=== PATIENT | female | born 1985 | race Caucasian/White ===

== ENCOUNTER 2018-01-20 14:08 | Emergency (ER) | payer MEDICAID ==
[~2018-01-20 14:08] MED LIST: ALBU18HF2 IH; CEFP100T7 PO; CLON0.1T20 PO; LEVO175T7 PO; QUET300T2 PO
== END 2018-01-20 16:07 | disposition left against medical advice (07) ==
LOC: ER 14:09
DX: J00 Acute nasopharyngitis [common cold] (principal); Z53.21 Procedure and treatment not carried out due to patient leaving prior to being seen by health care provider

== ENCOUNTER 2019-12-30 08:40 | Emergency (ER) | payer MEDICAID ==
[~2019-12-30] VITALS: Ht 170.2 cm; Wt 134.1 kg
[~2019-12-30 08:40] MED LIST changes: +CLON0.1T2 PO; -CLON0.1T20 PO
[2019-12-30 08:44] VITALS: BP 150/96
[2019-12-30] MEDS ORDERED: DOXY100C76 PO (10:09)
[2019-12-30] MEDS ORDERED: acetaminophen 325mg tablet PO ONE (10:10)
[2019-12-30] MEDS ORDERED: bacitracin 15gm ointment TP ONE (10:10)
[2019-12-30] MEDS ORDERED: TETanus/Pertussis (Acell)/Diphther VAC/PF (Tdap-Adult) 0.5ml syringe IMVAC ONE (10:10)
[2019-12-30] MEDS ORDERED: LIDOcaine 1% W/epiNEPHrine 1:200,000 10ml vial IJ ONE (10:10)
[2019-12-30] MEDS ORDERED: buprenorphine/naloxone 8MG-2MG SUBlingual film SL STA (12:05)
== END 2019-12-30 12:31 | disposition home or self-care (01) ==
LOC: ER 08:41
DX: S51.812A Laceration without foreign body of left forearm, initial encounter (principal); S51.811A Laceration without foreign body of right forearm, initial encounter; K21.9 Gastro-esophageal reflux disease without esophagitis; E11.9 Type 2 diabetes mellitus without complications; E03.9 Hypothyroidism, unspecified; F41.9 Anxiety disorder, unspecified; Z98.890 Other specified postprocedural states; F12.90 Cannabis use, unspecified, uncomplicated; Z72.89 Other problems related to lifestyle; Z56.0 Unemployment, unspecified; Z88.0 Allergy status to penicillin; Z88.8 Allergy status to other drugs, medicaments and biological substances; Z79.899 Other long term (current) drug therapy; W54.0XXA Bitten by dog, initial encounter; Y93.89 Activity, other specified; Y92.89 Other specified places as the place of occurrence of the external cause; Y99.8 Other external cause status
CPT/HCPCS: 12002; 73090; 73610; 90471; 90715; 99284

== ENCOUNTER 2020-02-07 12:58 | Emergency (ER) | payer MEDICAID ==
[~2020-02-07] VITALS: Ht 170.2 cm; Wt 110.0 kg
[2020-02-07] MEDS ORDERED: HYDR-4353 PO (14:09)
[2020-02-07 14:55] VITALS: BP 141/85
== END 2020-02-07 14:50 | disposition home or self-care (01) ==
LOC: ER 12:58
DX: M54.2 Cervicalgia (principal); M25.562 Pain in left knee; R20.0 Anesthesia of skin; K21.9 Gastro-esophageal reflux disease without esophagitis; E11.9 Type 2 diabetes mellitus without complications; E03.9 Hypothyroidism, unspecified; F41.9 Anxiety disorder, unspecified; F12.90 Cannabis use, unspecified, uncomplicated; F19.90 Other psychoactive substance use, unspecified, uncomplicated; Z98.890 Other specified postprocedural states; Z72.89 Other problems related to lifestyle; Z56.0 Unemployment, unspecified; Z88.0 Allergy status to penicillin; Z88.1 Allergy status to other antibiotic agents; Z88.8 Allergy status to other drugs, medicaments and biological substances; Z79.2 Long term (current) use of antibiotics; Z79.899 Other long term (current) drug therapy; W18.39XA Other fall on same level, initial encounter; Y93.89 Activity, other specified; Y92.89 Other specified places as the place of occurrence of the external cause; Y99.8 Other external cause status
CPT/HCPCS: 73564; 99284

== ENCOUNTER 2022-06-19 14:45 | Emergency (ER) | payer MEDICAID ==
[~2022-06-19] VITALS: Ht 172.7 cm; Wt 145.4 kg
[2022-06-19 16:53] VITALS: BP 132/94
[2022-06-19] MEDS ORDERED: ondansetron/PF 4mg/2ml inj IV ONE (20:05)
[2022-06-19] MEDS ORDERED: normal saline 1000ML IV soln IVB ONE (20:05)
[2022-06-19] MEDS ORDERED: dexamethasone sod phosphate 10mg/ml inj IV STA (20:08)
[2022-06-19 21:24] LABS: COLOR,URINE YELLOW (Yellow); GLUCOSE, URINE NEGATIVE (Neg); KETONES,URINE NEGATIVE (Neg); LEUKOCYTE ESTERASE ,URINE NEGATIVE (Neg); NITRITES, URINE NEGATIVE (Neg); OCCULT BLOOD,URINE NEGATIVE (Neg); PROTEIN,URINE TRACE mg/dl (Neg)
[2022-06-19 21:33] LABS: CLARITY,URINE SLIGHTLY CLOUDY (Clear); UA COLLECTION TYPE CLN CATCH MIDSTREAM
[2022-06-19 21:34] LABS: BACTERIA,URINE FEW /HPF (Neg); RBC,URINE NONE SEEN /HPF (0-2); SQUAMOUS EPITHELIAL CELL,UR MODERATE /LPF (FEW); WBC,URINE 0-4 /HPF (0-4)
[2022-06-19] MEDS ORDERED: ONDA8TAB13 PO (22:07)
== END 2022-06-19 22:20 | disposition home or self-care (01) ==
LOC: ER 14:46
DX: B34.9 Viral infection, unspecified (principal); Z20.822 Contact with and (suspected) exposure to COVID-19; R50.9 Fever, unspecified; R11.2 Nausea with vomiting, unspecified; K21.9 Gastro-esophageal reflux disease without esophagitis; E11.9 Type 2 diabetes mellitus without complications; E03.9 Hypothyroidism, unspecified; F41.9 Anxiety disorder, unspecified; F17.200 Nicotine dependence, unspecified, uncomplicated; F12.90 Cannabis use, unspecified, uncomplicated; F19.90 Other psychoactive substance use, unspecified, uncomplicated; Z98.890 Other specified postprocedural states; Z72.89 Other problems related to lifestyle; Z56.0 Unemployment, unspecified; Z88.0 Allergy status to penicillin; Z88.1 Allergy status to other antibiotic agents; Z88.8 Allergy status to other drugs, medicaments and biological substances; Z79.2 Long term (current) use of antibiotics; Z79.899 Other long term (current) drug therapy
CPT/HCPCS: 81001; 87502; 87503; 87635; 93005; 96361; 96374; 96375; 99284; C9803; J1100; J2405; J7030

== ENCOUNTER 2022-08-01 23:14 | Emergency (ER) | payer MEDICAID ==
[~2022-08-01] VITALS: Ht 172.7 cm; Wt 104.5 kg
[~2022-08-01 23:14] MED LIST changes: +ONDA8TAB13 PO
[2022-08-01] MEDS ORDERED: LIDOcaine/epinephrine/tetracaine TOPICAL sol 3 ML syringe TOP ONE (23:45)
[2022-08-01] MEDS ORDERED: iohexol 300mg/ml 100ml inj. ONE (23:47)
[2022-08-02] VITALS: BP 122/70
[2022-08-02 00:10] LABS: BASOPHILS % (AUTO) 0.5 % (0-1); EOSINOPHILS % (AUTO) 0.1 % (0-6); HEMATOCRIT 41.6 % (35.0-45.0); HEMOGLOBIN 13.8 g/dl (12.0-16.0); LYMPHOCYTES # (AUTO) 3.9 X10'3 (1.1-4.8); LYMPHOCYTES % (AUTO) 40.9 % (21-51); MEAN CORPUSCULAR HEMOGLOBIN 28.6 PG (27.0-31.0); MEAN CORPUSCULAR HGB CONC 33.2 g/dL (33.0-36.5); MEAN CORPUSCULAR VOLUME 86.3 FL (78-98); MEAN PLATELET VOLUME 7.8 FL (7.4-10.4); MONOCYTES # (AUTO) 1.1 X10'3 (0-0.9); MONOCYTES % (AUTO) 11.7 % (2-12); NEUTROPHILS # (AUTO) 4.5 X10'3 (1.8-7.7); NEUTROPHILS % (AUTO) 46.8 % (42-75); PLATELET COUNT 219 X10'3 (140-440); RED BLOOD COUNT 4.82 X10'6 (4.20-5.60); RED CELL DISTRIBUTION WIDTH 17.1 % (11.5-14.5); WHITE BLOOD COUNT 9.6 X10'3 (4.5-11.0)
[2022-08-02 00:30] LABS: ANION GAP 6 (8-16); BILIRUBIN,TOTAL 0.3 MG/DL (0.1-1.0); BLOOD UREA NITROGEN 10 MG/DL (7-18); BUN/CREATININE RATIO 14.1 (6.6-38.0); CALCIUM 8.5 MG/DL (8.5-10.1); CHLORIDE 105 MMOL/L (99-107); CREATININE 0.71 MG/DL (0.40-0.90); GLUCOSE 89 MG/DL (70-104); POTASSIUM 3.3 MMOL/L (3.5-5.1); SODIUM 141 MMOL/L (135-145); TOTAL CARBON DIOXIDE 29.7 MMOL/L (24-32); eGFR > 90 ML/MIN
[2022-08-02 00:31] LABS: ALANINE AMINOTRANSFERASE 45 U/L (12-78); ALBUMIN 3.5 G/DL (3.4-5.0); ALBUMIN/GLOBULIN RATIO 0.9 (1.1-1.5); ALKALINE PHOSPHATASE 92 IU/L (46-116); ASPARTATE AMINO TRANSFERASE 32 U/L (10-37); BETA HCG,QUANTITATIVE < 1.0 mIU/ml; TOTAL PROTEIN 7.2 G/DL (6.4-8.2)
[2022-08-02] MEDS ORDERED: POTASSIUM BICARB 20meq eff tab 20 MEQ TABLET.EFF PO SCH (01:10)
[2022-08-02 01:39] LABS: CLARITY,URINE SLIGHTLY CLOUDY (Clear); COLOR,URINE YELLOW (Yellow); GLUCOSE, URINE NEGATIVE (Neg); KETONES,URINE NEGATIVE (Neg); LEUKOCYTE ESTERASE ,URINE NEGATIVE (Neg); NITRITES, URINE POSITIVE (Neg); OCCULT BLOOD,URINE NEGATIVE (Neg); PH,URINE 5.5 (4.8-8.0); PROTEIN,URINE NEGATIVE (Neg); UROBILINOGEN,URINE 0.2 E.U/dL (0.2-1.0)
[2022-08-02 01:45] LABS: UA COLLECTION TYPE OTHER
[2022-08-02 01:46] LABS: MUCUS STRANDS MODERATE /LPF (Neg); SQUAMOUS EPITHELIAL CELL,UR MANY /LPF (FEW)
[2022-08-02 01:47] LABS: CAL OXALATE CRYSTALS 4+ /HPF (NEGATIVE)
[2022-08-02 01:48] LABS: BACTERIA,URINE 1+ /HPF (Neg); RBC,URINE 0-2 /HPF (0-2)
[2022-08-02] MEDS ORDERED: ketorolac trometh. 30mg/ml inj. IV ONE (01:50)
[2022-08-02] MEDS ORDERED: acetaminophen 325mg tablet PO ONE (01:50)
[2022-08-02] MEDS ORDERED: LIDOCAINE 2%/EPI 1:100,000 inj. Multi-dose 20 ML VIAL IM ONE (02:00)
[2022-08-02 02:08] LABS: URINE AMPHETAMINE SCREEN POSITIVE (Neg); URINE BARBITUATE SCREEN NEGATIVE (Neg); URINE BENZODIAZEPINES SCREEN POSITIVE (Neg); URINE CANNABINOID SCREEN POSITIVE (Neg); URINE COCAINE SCREEN NEGATIVE (Neg); URINE METHADONE SCREEN NEGATIVE (Neg); URINE OPIATE SCREEN NEGATIVE (Neg); URINE PHENCYCLIDINE SCREEN NEGATIVE (Neg)
[2022-08-02 02:09] LABS: ETHANOL < 0.010 GM/DL (0.0-0.010)
== END 2022-08-02 03:00 | disposition home or self-care (01) ==
LOC: ER 23:16
DX: S01.01XA Laceration without foreign body of scalp, initial encounter (principal); S30.0XXA Contusion of lower back and pelvis, initial encounter; S30.1XXA Contusion of abdominal wall, initial encounter; S50.01XA Contusion of right elbow, initial encounter; K21.9 Gastro-esophageal reflux disease without esophagitis; E11.9 Type 2 diabetes mellitus without complications; E03.9 Hypothyroidism, unspecified; F41.9 Anxiety disorder, unspecified; F12.90 Cannabis use, unspecified, uncomplicated; Z98.890 Other specified postprocedural states; Z72.89 Other problems related to lifestyle; Z56.0 Unemployment, unspecified; Z88.0 Allergy status to penicillin; Z88.1 Allergy status to other antibiotic agents; Z88.8 Allergy status to other drugs, medicaments and biological substances; Z79.899 Other long term (current) drug therapy; V87.7XXA Person injured in collision between other specified motor vehicles (traffic), initial encounter; Y93.89 Activity, other specified; Y92.488 Other paved roadways as the place of occurrence of the external cause; Y99.8 Other external cause status
CPT/HCPCS: 12002; 36415; 70450; 71260; 72125; 73110; 73140; 73610; 74177; 80053; 80305; 80320; 81001; 83880; 84702; 85025; 85610; 86885; 86900; 86901; 99285; J3490; Q9967; A6449

== ENCOUNTER 2024-10-22 11:29 | Emergency (ER) | payer MEDICAID ==
[~2024-10-22] VITALS: Ht 170.2 cm; Wt 160.0 kg
[~2024-10-22 11:29] MED LIST changes: +ONDA-245 PO; -ONDA8TAB13 PO
[2024-10-22 11:35] VITALS: BP 166/64; PULSE 88; RESP 18; TEMP 97.6; O2SAT 96
[2024-10-22 13:29] LABS: BILIRUBIN,URINE NEGATIVE (Neg); CLARITY,URINE TURBID (Clear); COLOR,URINE RED (Yellow); GLUCOSE, URINE 100 mg/dl (Neg); KETONES,URINE NEGATIVE (Neg); LEUKOCYTE ESTERASE ,URINE NEGATIVE (Neg); OCCULT BLOOD,URINE MODERATE (Neg); PH,URINE 5.5 (4.8-8.0); PROTEIN,URINE 30 mg/dl (Neg)
[2024-10-22 13:33] LABS: URINE HCG NEGATIVE (NEG)
[2024-10-22 13:34] LABS: NITRITES, URINE NEGATIVE (Neg); UA COLLECTION TYPE NON-SPECIFIED
[2024-10-22] MEDS: phenazopyridine 100mg tablet PO ONE (13:34)
[2024-10-22 13:36] LABS: AMORPHOUS URATES 3+
[2024-10-22 13:37] LABS: SQUAMOUS EPITHELIAL CELL,UR MODERATE /LPF (FEW)
[2024-10-22 13:38] LABS: RBC,URINE 20-50 /HPF (0-2)
[2024-10-22] MEDS ORDERED: SULF1TAB49 PO (13:39)
[2024-10-22 13:40] LABS: BACTERIA,URINE FEW /HPF (Neg); WBC,URINE 0-4 /HPF (0-4)
== END 2024-10-22 13:45 | disposition home or self-care (01) ==
LOC: ER 11:30
DX: N39.0 Urinary tract infection, site not specified (principal); E03.9 Hypothyroidism, unspecified; E11.9 Type 2 diabetes mellitus without complications; Z88.0 Allergy status to penicillin; Z88.1 Allergy status to other antibiotic agents
CPT/HCPCS: 81001; 81025; 99283

== ENCOUNTER 2024-12-05 14:56 | Emergency (ER) | payer MEDICAID ==
[~2024-12-05] VITALS: Ht 170.2 cm; Wt 154.6 kg
[2024-12-05 15:00] VITALS: BP 178/117; PULSE 101; RESP 16; TEMP 98; O2SAT 99
--- NOTE | 2024-12-05 15:21 | Physician Documentation ---
History of Present Illness ~ Chief Complaint: Leg Laceration Stated Complaint: L LEG LAC Time Seen by MD: 15:20 Primary Medical Doctor: Dr. Lewis [facility] HPI 39-year-old female presents to the emergency department [place] cut her left lateral outer leg on a piece of glass or some branches. Significant bleeding at the scene, but someone had some gauze and Coban that she wrapped it up with. She believes that her most recent tetanus was in 2019. She denies any other concerns today. Tetanus Within 5 Years: No Medication Reconciliation Allergies: Coded Allergies: Penicillins (Verified Allergy, Severe, 10/22/24) Tolerated Cefepime during hospital stay 02/22 amoxicillin (Verified Allergy, Unknown, rash, 10/22/24) cyclobenzaprine HCl (Verified Allergy, Unknown, RASH, 10/22/24) ketorolac tromethamine (Verified Allergy, Unknown, RASH, 10/22/24) Uncoded Allergies: throat swells (Allergy, Severe, 05/26/16) Scheduled Cefpodoxime Proxetil (Cefpodoxime Proxetil), 100 MG PO BID@0830,1730 Clonidine HCl (Clonidine HCl), 1 TAB PO BID, (Reported) Levothyroxine Sodium (Levothyroxine Sodium), 1 TAB PO DAILY, (Reported) Ondansetron 8mg ODT (Ondansetron Odt), 1 TAB PO Q6H Quetiapine Fumarate (Seroquel), 300 MG PO BID, (Reported) Sulfamethoxazole/Trimethoprim (Bactrim Ds Tablet), 1 TAB PO Q12H Scheduled PRN Albuterol Sulfate (Ventolin Hfa), 1 PUFF IH Q6H PRN for SOB or wheezing, (Reported) Past Medical History Past Medical History: GERD, Diabetes, Hypothyroidism, Anxiety Past Surgical History: orthopedic surgeries, other Patient History: FH: prostate cancer FATHER Alcohol Use: Occasionally Drug Use: marijuana, other Lives with: Spouse Lives In: Home Occupation: unemployed Review of Systems ROS As stated above in the HPI, otherwise all systems are reviewed and negative. Physical Exam Vital Signs: Temperature: 98.0, Source: Temporal, Heart Rate: 101, Respiratory Rate: 16, BP: 178/117, Pulse Oximetry: 99, Weight: 154.600 Oxygen Flow Rate: 0 Physical Exam General: Alert, no apparent distress. Neck: Full range of motion. Respiratory: Lungs clear, no respiratory distress. Chest: No accessory muscle use. Cardiovascular: Regular rate and rhythm, no murmurs. Gastrointestinal: Soft, nontender, nondistended. Bowels sounds present. Extremities: Normal range of motion, no deformity. Neurologic: Oriented x4. Psychiatric: Normal mood and affect. Skin: Normal color, warm and dry. No edema, no ecchymosis. Procedures Procedure Note LLE laceration measuring 3 cm closed with four 4.0 ethilon sutures to good effect. This was accomplished after the wound was anesthetized with 2 ml of 1% lidocaine with epi to good effect. The helpdesk technician then irrigated with 250 ml of NS. No foreign body. Adipose tissue exposed. Good closure and patient tolerated well. Progress Results/Orders Results/Orders Orders - JONAH BOONE ASSEMBLY MACHINE OPERATOR Tib/Fib (12/05/24 15:21) Dressing Orders (12/05/24 15:21) Laceration/I&D Tray Set Up (12/05/24 15:21) Wound Care Orders (12/05/24 15:21) Completed Orders - JONAH BOONE ASSEMBLY MACHINE OPERATOR Tib/Fib (12/05/24 15:21) Tetanus/Pertuss/Diph Acell/Pf (Boostrix (12/05/24 15:25) Lidocaine 1% W/Epi 1:100,000 (Xylocaine (12/05/24 15:25) Vital Signs 12/05/24 15:00 Temp 98.0 Pulse 101 Resp 16 B/P (MAP) 178/117 Pulse Ox 99 O2 Flow Rate 0 EKG/XRAY/CT/US/VASC/MRI Bone/Soft Tissue X-Ray (Ext.) : Additional Comment DIAGNOSTIC RADIOLOGY Patient: FATIMAH RAMOS Medical Record: [id number] JOSEPH LONDON : 1985, Age: 39 Sex: Female Location: ER Patient Status: REG ER Service Date/Time: 12/05/24/ 1521 Ordering Physician: JONAH BOONE NP Exam: TIB/FIB 2 VWS RIGHTLEFT TIBIA RADIOGRAPH. INDICATION: foreign body TECHNIQUE: 3 radiographic views of the left tibia were obtained. FINDINGS: . There is no evidence for fracture, subluxation, or dislocation. There is normal anatomic alignment of the bones. There is normal bone mineralization. The soft tissues are unremarkable. There are no radiopaque foreign bodies. There is subcutaneous fat stranding suggesting soft tissue edema. IMPRESSION: 1. No acute fracture or dislocation 2. Soft tissue edema Electronically Signed by:GAETANO MCMANUS MD Date & Time: 12/05/24 154 Dictated by: AGETANO MCMANUS MD Dictation date and time: 12/05/24 152 Primary Care Provider: NO PRIMARY CARE PROVIDER cc: JONAH BOONE ASSEMBLY MACHINE OPERATOR ~ Medical Decision Making Differential Dx:Considerations: Include: Abrasion, Avulsion, Contusion, Laceration, Fracture, Hematoma, Neurovascular injury, Retained foreign body Departure Time of Disposition: 15:51 Disposition: 01 HOME / SELF CARE / HOMELESS Impression: Primary Impression: Laceration Condition: Stable Discharge Instructions: Laceration Care, Adult Additional Instructions: Sutures to left leg need to come out in 5-7 days. Take the antibiotics for three days and then stop UNLESS YOU HAVE SIGNS OF INFECTION (redness, swelling, yellow drainage). If you do, complete the course. Return if worse. Keep wound clean and dry. Referrals: NO PRIMARY CARE PROVIDER (PCP) Prescriptions Sulfamethoxazole/Trimethoprim (Bactrim Ds Tablet) 800 Mg-160 Mg Tablet 1 TAB PO Q12H for 7 Days, #14 TAB Prov: JONAH BOONE NP 12/05/24 Education Educated: Patient, Family Educated regarding: diagnosis, treatment, prognosis, need for follow up Signature Scribe Signature: no scribe Attestation: The note accurately reflects work and decisions made by me.Jonah Ugalde NP 12/05/24 15:51 JONAH BOONE NP December 05, 2024 15:21
[2024-12-05] MEDS: TETanus/Pertussis (Acell)/Diphther VAC/PF (Tdap-Adult) 0.5ml syringe IMVAC ONE (15:25)
--- NOTE | 2024-12-05 15:46 | RADIOLOGY REPORT ---
RIGHTLEFT TIBIA RADIOGRAPH. INDICATION: foreign body TECHNIQUE: 3 radiographic views of the left tibia were obtained. FINDINGS: . There is no evidence for fracture, subluxation, or dislocation. There is normal anatomic alignment of the bones. There is normal bone mineralization. The soft tissues are unremarkable. There are no radiopaque foreign bodies. There is subcutaneous fat stranding suggesting soft tissue edema. IMPRESSION: 1. No acute fracture or dislocation 2. Soft tissue edema
[2024-12-05] MEDS ORDERED: SULF1TAB49 PO (15:52)
[2024-12-05] MEDS: LIDOcaine 1% W/epiNEPHrine 1:100,000 20ml vial IJ ONE (16:14)
[2024-12-06] MEDS ORDERED: OXYC-150 PO (21:00)
== END 2024-12-05 16:53 | disposition home or self-care (01) ==
LOC: ER 14:57
DX: S81.812A Laceration without foreign body, left lower leg, initial encounter (principal); E11.9 Type 2 diabetes mellitus without complications; E03.9 Hypothyroidism, unspecified; F41.9 Anxiety disorder, unspecified; K21.9 Gastro-esophageal reflux disease without esophagitis; F12.90 Cannabis use, unspecified, uncomplicated; Z88.0 Allergy status to penicillin; Z88.1 Allergy status to other antibiotic agents; Z79.899 Other long term (current) drug therapy; Z72.89 Other problems related to lifestyle; Z56.0 Unemployment, unspecified; X58.XXXA Exposure to other specified factors, initial encounter; Y93.89 Activity, other specified; Y92.89 Other specified places as the place of occurrence of the external cause; Y99.8 Other external cause status
CPT/HCPCS: 12002; 73590; 99283; A6222; J7030; A6258; A6449

== ENCOUNTER 2024-12-06 19:46 | Emergency (ER) | payer MEDICAID ==
[~2024-12-06] VITALS: Ht 170.2 cm; Wt 129.6 kg
[~2024-12-06 19:46] MED LIST changes: +SULF1TAB49 PO
[2024-12-06 20:24] VITALS: TEMP 98.6
[2024-12-06] MEDS: ondansetron/PF 4mg/2ml inj IV ONE (20:55)
[2024-12-06] MEDS ORDERED: OXYC-150 PO (21:00)
--- NOTE | 2024-12-06 21:00 | Physician Documentation ---
History of Present Illness ~ Chief Complaint: Elbow pain Stated Complaint: L ELBOW INJURY Time Seen by MD: 20:14 Primary Medical Doctor: Dr. Joshua BARRERA HPI 39-year-old female reports a chief complaint of left elbow pain. Patient states [place] when she tripped and fell over a root and landed on her left elbow. Patient states she had immediate pain is able to range her elbow secondary to pain. Denies numbness tingling loss of sensation. Denies striking her head. Currently not on blood thinners. No other complaints at this time Tetanus within 5 years: No Medication Reconciliation Allergies: Coded Allergies: Penicillins (Verified Allergy, Severe, 12/06/24) Tolerated Cefepime during hospital stay 02/22 amoxicillin (Verified Allergy, Unknown, rash, 12/06/24) cyclobenzaprine HCl (Verified Allergy, Unknown, RASH, 12/06/24) ketorolac tromethamine (Verified Allergy, Unknown, RASH, 12/06/24) Uncoded Allergies: throat swells (Allergy, Severe, 05/26/16) Scheduled Cefpodoxime Proxetil (Cefpodoxime Proxetil), 100 MG PO BID@0830,1730 Clonidine HCl (Clonidine HCl), 1 TAB PO BID, (Reported) Levothyroxine Sodium (Levothyroxine Sodium), 1 TAB PO DAILY, (Reported) Ondansetron 8mg ODT (Ondansetron Odt), 1 TAB PO Q6H Quetiapine Fumarate (Seroquel), 300 MG PO BID, (Reported) Sulfamethoxazole/Trimethoprim (Bactrim Ds Tablet), 1 TAB PO Q12H Scheduled PRN Albuterol Sulfate (Ventolin Hfa), 1 PUFF IH Q6H PRN for SOB or wheezing, (Reported) Past Medical History Past Medical History: GERD, Diabetes, Hypothyroidism, Anxiety Past Surgical History: orthopedic surgeries, other Patient History: FH: prostate cancer FATHER Alcohol Use: Occasionally Drug Use: marijuana, other Lives with: Spouse Lives In: Home Occupation: unemployed Physical Exam Vital Signs: Temperature: 98.6, Source: Oral, Heart Rate: 70, Respiratory Rate: 16, BP: 137/87, Pulse Oximetry: 93, Weight: 129.550 Physical Exam General: Well developed, well nourished, no distress. HEENT: Atraumatic, normal conjunctiva, moist mucous membranes. Neck: Full range of motion, supple. Respiratory: Lungs clear, no respiratory distress. Chest: No accessory muscle use, nontender. Cardiovascular: Regular rate and rhythm. Gastrointestinal: Soft, nontender, nondistended. Bowel sounds present. Extremities: Left elbow exam: Negative for permanents gross deformities. Positive for swelling globally throughout the elbow with a large joint effusion. Positive for significant tenderness over the radial head the patient able to fully flex or extend or supinate pronate secondary to pain. Radial, ulnar, median motor sensory grossly intact. Neurovascular intact distal Back: No midline tenderness, no CVA tenderness. Neurologic: Oriented x4. Distal gross motor and sensory intact all four extremities. Moves all 4 extremities spontaneously. Psychiatric: Normal mood and affect. Skin: Normal color, warm and dry. No edema, no ecchymosis Procedures Splinting Hand-Made Type: Plaster Splint: Long-arm posterior Pre-Proc Neuro Vasc Exam: normal, abnormal Post-Proc Neuro Vasc Exam: normal Splint Placed By: Provider Tolerated Procedure Well?: yes, no complications Progress Results/Orders Results/Orders Orders - CHARLES DIETRICH Elbow, Complete (3vw Min) (12/06/24 20:30) Forearm,Incl.One Joint (12/06/24 20:30) Fentanyl/Pf (Fentanyl 0.05 Mg/Ml Syringe (12/06/24 20:55) Ondansetron Inj. (Zofran 4mg/2ml Vial) (12/06/24 20:55) Completed Orders - CHARLES DIETRICH Elbow, Complete (3vw Min) (12/06/24 20:30) Forearm,Incl.One Joint (12/06/24 20:30) Vital Signs 12/06/24 20:24 Temp 98.6 Pulse 70 Resp 16 B/P (MAP) 137/87 Pulse Ox 93 Medical Decision Making Additional info obtained from: old records Findings After detailed discussion and joint medical decision-making, diagnostic and imaging results were discussed with the patient. At this time patient has a significantly displaced comminuted and displaced radial head fracture. Patient was given medication for pain and placed into a posterior long-arm splint and given orthopedic follow up instructions. Patient is advised to follow up with the primary care. Patient is given medication for pain. ER precautions given. Patient is stable upon discharge. All patient questions answered to satisfaction General Diff Dx:Considerations: Include: Other (Fracture, contusion, strain) Departure Disposition: HOME / SELF CARE / HOMELESS Impression: Primary Impression: Radial head fracture, closed Condition: Stable Discharge Instructions: Radial Head Elbow Fracture Rehab, Radial Head Fracture, Radial Head Fracture, [id number] Referrals: NO PRIMARY CARE PROVIDER (PCP) BREANA RIVERA MD Prescriptions Oxycodone HCl/Acetaminophen (Percocet 10-325 mg Tablet) 10 Mg-325 Mg Tablet 1 TAB PO TID PRN for 5 Days, #30 TAB 0 Refills Prov: CHARLES DIETRICH 12/06/24 Education Educated: Patient Educated regarding: diagnosis, treatment Signature Scribe Signature: none used Attestation: Scribed for Charles Dietrich by Charles CORRAL . 12/06/24 21:02 CHARLES DIETRICH December 06, 2024 21:00
--- NOTE | 2024-12-06 21:22 | RADIOLOGY REPORT ---
CLINICAL INDICATION: pain s/p fall TECHNIQUE: 2 radiographic views of the left forearm were obtained. Comparison: None FINDINGS/IMPRESSION: There is acute comminuted displaced radial head fracture with associated soft tissue edema and elbow joint effusion. 4 mm density adjacent to the coronoid process of the ulna which may represent a small avulsed bony fragment.
--- NOTE | 2024-12-06 21:23 | RADIOLOGY REPORT ---
CLINICAL INDICATION: pain s/p fall lateral elbow is with forearm TECHNIQUE: 2 radiographic views of the left elbow were obtained. Comparison: ANKLE, COMPLETE(3VW MIN) on DOS: 08/02/22, WRIST, COMPLETE (3VW MIN) on DOS: 08/01/22, ANKL E, COMPLETE(3VW MIN) on DOS: 12/30/19 FINDINGS/IMPRESSION: There is acute comminuted moderately displaced radial head fracture with associated soft tissue edema . Small bony fragment adjacent to the coronoid process of the ulna which May represent a small avulse d bony fragment.
[2024-12-06] MEDS: fentaNYL/PF 50MCG/1 ML 2ML syringe IV ONE (21:37)
[2024-12-06 22:15] VITALS: BP 140/87; PULSE 82; RESP 18; O2SAT 94
== END 2024-12-06 22:17 | disposition home or self-care (01) ==
LOC: ER 19:47
DX: S52.122A Displaced fracture of head of left radius, initial encounter for closed fracture (principal); E11.9 Type 2 diabetes mellitus without complications; E03.9 Hypothyroidism, unspecified; K21.9 Gastro-esophageal reflux disease without esophagitis; F41.9 Anxiety disorder, unspecified; F12.90 Cannabis use, unspecified, uncomplicated; Z56.0 Unemployment, unspecified; Z88.1 Allergy status to other antibiotic agents; Z88.0 Allergy status to penicillin; Z79.899 Other long term (current) drug therapy; W01.0XXA Fall on same level from slipping, tripping and stumbling without subsequent striking against object, initial encounter; Y93.89 Activity, other specified; Y92.89 Other specified places as the place of occurrence of the external cause; Y99.8 Other external cause status
CPT/HCPCS: 29105; 73080; 73090; 96374; 99284; J3010; A4565